=== PATIENT | male | born 1980 | race Caucasian/White ===

== ENCOUNTER 2020-07-27 03:51 | Emergency (ER) | payer MEDICARE, MEDICAID ==
[~2020-07-27] VITALS: Ht 185.4 cm; Wt 112.0 kg
[~2020-07-27 03:51] MED LIST: ALB0.5UD IH; ALBU8.5H8 IH; CYCL-1 PO; MOME13HF INH; TAMS0.4C32 PO
[2020-07-27 03:52] VITALS: BP 144/98
[2020-07-27] MEDS ORDERED: AZIT-63 PO (04:09)
[2020-07-27] MEDS ORDERED: PRED20TA PO (04:09)
[2020-07-27] MEDS ORDERED: predniSONE 20 mg tablet PO ONE (04:10)
[2020-07-27] MEDS ORDERED: azithromycin 250mg tablet PO ONE (04:10)
== END 2020-07-27 04:56 | disposition home or self-care (01) ==
LOC: ER 03:52
DX: J06.9 Acute upper respiratory infection, unspecified (principal); J40 Bronchitis, not specified as acute or chronic; G89.29 Other chronic pain; F17.210 Nicotine dependence, cigarettes, uncomplicated; Z72.89 Other problems related to lifestyle; Z79.2 Long term (current) use of antibiotics; Z79.899 Other long term (current) drug therapy; Z20.828 Contact with and (suspected) exposure to other viral communicable diseases
CPT/HCPCS: 36415; 87635; 99283; J7512